=== PATIENT | male | born 1995 | race Caucasian/White ===

== ENCOUNTER 2017-01-04 15:43 | Emergency (ER) | payer SELFPAY ==
[2017-01-04 16:02] VITALS: BP 134/82
[2017-01-04] MEDS ORDERED: Diphtheria,Pertussis(Acell),Tetanus Vaccine 0.5 ML SDV IM ONE (16:07)
[2017-01-04] MEDS ORDERED: Bacitracin Oint 1 GM U/D Packet ONE (16:13)
--- NOTE | 2017-01-04 17:15 | EDM.PDOC ---
[id number] 4d TUBING ACCIDENT, CUT CHIN Time Seen by Provider: 01/04/17 16:10 Source of Information: Reports: Patient History Limitations: Reports: No Limitations - History of Present Illness INITIAL COMMENTS - FREE TEXT/NARRATIVE: 21-year-old male with a transverse somewhat irregular laceration under his chin from a tubing accident. No loss of consciousness, no jaw pain and no other injury. Denies neck pain. Onset: Sudden Severity: Mild Associated Symptoms: Reports: No Other Symptoms - Related Data Allergies Allergy/AdvReac Type Severity Reaction Status Date / Time No Known Allergies Allergy Verified 01/04/17 15:59 Home Meds: Home Meds NK [No Known Home Meds] 01/04/17 [History] Past Medical History - Past Health History Medical/Surgical History: Denies Medical/Surgical History Social & Family History - Tobacco Use Smoking Status *Q: Never Smoker ED ROS GENERAL - Review of Systems Review Of Systems: ROS reveals no pertinent complaints other than HPI. ED EXAM, SKIN/RASH Exam: See Below Exam Limited By: No Limitations General Appearance: Alert, No Apparent Distress Head: Other (Patient has a 5 cm somewhat irregular laceration, transverse, under the chin deep into the subcutaneous tissue.) Neck: Normal Inspection, Non-Tender Respiratory/Chest: No Respiratory Distress Course - Vital Signs Last Recorded V/S: Last Vital Signs Temp 98.8 F 01/04/17 16:04 Pulse 83 01/04/17 16:04 Resp 16 01/04/17 16:04 BP 134/82 01/04/17 16:04 Pulse Ox 98 01/04/17 16:04 - Orders/Labs/Meds Orders: Active Orders 24 hr Category Date Time Status Vaccines to be Administered [RC] PER UNIT ROUTINE Care 01/04/17 16:08 Active Meds: Medications Discontinued Medications Generic Name Dose Route Start Last Admin Trade Name Freq PRN Reason Stop Dose Admin Bacitracin Confirm 01/04/17 16:13 01/04/17 17:33 Bacitracin Oint 1 Gm Administered 01/04/17 16:14 1 dose Dose Administration 1 dose .ROUTE .STK-MED ONE Diphtheria/Tetanus/Acell Pertussis 0.5 ml 01/04/17 16:07 01/04/17 16:19 Adacel IM 01/04/17 16:08 0.5 ml .ONCE ONE Administration Lidocaine HCl 5 ml 01/04/17 16:07 01/04/17 16:19 Xylocaine-Mpf 1% INJECT 01/04/17 16:08 5 ml ONETIME ONE Administration - Re-Assessments/Exams Free Text/Narrative Re-Assessment/Exam: 01/04/17 17:14 The area was anesthetized with 1% lidocaine. After thorough cleansing with saline and Hibiclens, 4 4-0 Vicryl sutures were used to close the subcutaneous tissue. 9 external 4-0 Ethilon sutures were used to close the outside laceration. Topical bacitracin and a pressure dressing was applied. Sutures can be removed in 7 days. Departure - Departure Time of Disposition: 17:35 Disposition: Home, Self-Care 01 Condition: Good Clinical Impression: Laceration of chin without complication Qualifiers: Encounter type: initial encounter Qualified Code(s): S01.81XA - Laceration without foreign body of other part of head, initial encounter - Discharge Information Instructions: Facial Laceration, [id number], Sutured Wound Care, [id number] Referrals: PCP,None [Primary Care Provider] - Forms: ED Department Discharge Care Plan Goals: Keep wound covered and clean while healing. Sutures can be removed in 7 days. Recheck sooner if concerns of infection or not healing satisfactorily. - My Orders Last 24 Hours: My Active Orders 01/04/17 16:08 Vaccines to be Administered [RC] PER UNIT ROUTINE - Assessment/Plan Last 24 Hours: My Active Orders 01/04/17 16:08 Vaccines to be Administered [RC] PER UNIT ROUTINE
== END 2017-01-04 17:36 | disposition home or self-care (01) ==
LOC: JP.ED 15:43
DX: S01.81XA Laceration without foreign body of other part of head, initial encounter (principal); W26.9XXA Contact with unspecified sharp object(s), initial encounter; Z23 Encounter for immunization; Y93.16 Activity, rowing, canoeing, kayaking, rafting and tubing
CPT/HCPCS: 12013; 12052; 90471; 90715; 99283-25

== ENCOUNTER 2019-11-26 19:42 | Emergency (ER) | payer SELFPAY ==
[2019-11-26 20:16] VITALS: BP 147/93; PULSE 98
--- NOTE | 2019-11-26 20:38 | EDM.PDOC ---
ED HPI GENERAL MEDICAL PROBLEM - General Chief Complaint: Upper Extremity Injury/Pain Stated Complaint: RT WRIST INJURY Time Seen by Provider: 11/26/19 20:15 Source of Information: Reports: Patient History Limitations: Reports: No Limitations - History of Present Illness INITIAL COMMENTS - FREE TEXT/NARRATIVE: 24 yo male while intoxicated fell forward and attempted to break his fall with his outstretched R hand. He injured his R wrist and is here for eval. Is from [place]. Admits to intoxication. No other injuries. - Related Data Allergies Allergy/AdvReac Type Severity Reaction Status Date / Time No Known Allergies Allergy Verified 11/26/19 20:15 Home Meds: Home Meds Finasteride 1 tab PO DAILY 11/26/19 [History] Past Medical History - Past Health History Medical/Surgical History: Denies Medical/Surgical History Social & Family History - Tobacco Use Smoking Status *Q: Never Smoker Review of Systems - Review of Systems Review Of Systems: See Below Constitutional: Reports: No Symptoms Musculoskeletal: Reports: Joint Pain (R wrist) Skin: Reports: No Symptoms Neurological: Reports: No Symptoms ED EXAM, GENERAL - Physical Exam Exam: See Below Exam Limited By: No Limitations General Appearance: Alert, WD/WN, No Apparent Distress Extremities: No Pedal Edema (R dorsal wrist), Joint Swelling (R wrist), Limited Range of Motion. No: Normal Inspection, Normal Range of Motion, Non-Tender, Increased Warmth, Redness Neurological: Alert, Oriented, CN II-XII Intact, Normal Cognition, No Motor/Sensory Deficits Psychiatric: Normal Affect, Normal Mood Skin Exam: Warm, Dry, Intact, Normal Color, No Rash ED TRAUMA EXTREMITY PROCEDURES - Splinting Right Upper Extremity Splint Site: R wrist Pre-Procedure NV Status: Normal Post-Procedure NV Status: Normal Splint Material: Other (Ortho Glass) Splint Design: Sugar Tong Applied & Form Fitted By: Provider Provider Post-Splint Application NV Check: NV Status Normal, Good Position Complications: No Course - Vital Signs Last Recorded V/S: Last Vital Signs Temp 35.5 C L 11/26/19 20:19 Pulse 98 11/26/19 20:19 Resp 16 11/26/19 20:19 BP 147/93 H 11/26/19 20:19 Pulse Ox 97 11/26/19 20:19 - Orders/Labs/Meds Orders: Active Orders 24 hr Category Date Time Status Wrist Comp Min 3V Rt [CR] Stat Exams 11/26/19 19:47 Taken - Radiology Interpretation Free Text/Narrative:: Wrist [id number] radius fx with dorsal angulation, ulnar styloid fx. Departure - Departure Time of Disposition: 20:45 Disposition: Home, Self-Care 01 Condition: Fair Clinical Impression: Distal radius fracture, right Qualifiers: Encounter type: initial encounter Fracture type: closed Fracture morphology: Colles' Qualified Code(s): S52.531A - Colles' fracture of right radius, initial encounter for closed fracture - Discharge Information *PRESCRIPTION DRUG MONITORING PROGRAM REVIEWED*: No *COPY OF PRESCRIPTION DRUG MONITORING REPORT IN PATIENT [place]: No Instructions: Wrist Fracture Treated With Immobilization, [id number] Referrals: PCP,None [Primary Care Provider] - Additional Instructions: Wear splint/sling at all times. Take ibuprofen 600 mg every 6 hrs with food for pain relief. Add either acetaminophen 1000 mg every 6 hrs or [place] for added relief. Call Thursday to arrange orthopedic follow up for definitive care, take your X-ray disc to that appt. Sepsis Event Note (ED) - Evaluation Sepsis Screening Result: No Definite Risk - Focused Exam Vital Signs: Vital Signs Temp Pulse Resp BP Pulse Ox 11/26/19 20:19 35.5 C L 98 16 147/93 H 97 11/26/19 20:14 35.5 C L 98 16 147/93 H 97 - My Orders Last 24 Hours: My Active Orders 11/26/19 19:47 Wrist Comp Min 3V Rt [CR] Stat - Assessment/Plan Last 24 Hours: My Active Orders 11/26/19 19:47 Wrist Comp Min 3V Rt [CR] Stat
--- NOTE | 2019-11-28 10:59 | CR ---
Wrist Comp Min 3V Rt CLINICAL HISTORY: Fall FINDINGS: There is no of fracture the radial metaphysis and ulnar styloid. There is dorsal angulation of the distal radius. Impression: Impacted angulated fracture of the distal radius and fracture the ulnar styloid
== END 2019-11-26 21:18 | disposition home or self-care (01) ==
LOC: JP.ED 19:42
DX: S52.531A Colles' fracture of right radius, initial encounter for closed fracture (principal); S52.611A Displaced fracture of right ulna styloid process, initial encounter for closed fracture; W18.30XA Fall on same level, unspecified, initial encounter
CPT/HCPCS: 29125; 73110-26-RT; 73110-RT; 99283-25